=== PATIENT | female | born 1990 | race Two or more races ===

== ENCOUNTER 2021-11-27 22:54 | Emergency (ER) | payer OTHER ==
[~2021-11-27] VITALS: Ht 165.1 cm; Wt 91.6 kg
[2021-11-27] MEDS ORDERED: PRENA1 TRUE CO1 EACH (23:09)
[2021-11-28] MEDS ORDERED: PEPCID40 MG PO (02:55)
[2021-11-28] MEDS ORDERED: ONDANSETRON ODT4 MG PO (02:55)
== END 2021-11-28 03:09 ==
LOC: ER 22:54
DX: O26.892 Other specified pregnancy related conditions, second trimester (principal); Z3A.15 15 weeks gestation of pregnancy; K29.70 Gastritis, unspecified, without bleeding